=== PATIENT | male | born 1980 | race Caucasian/White ===

== ENCOUNTER 2017-06-14 15:19 | Emergency (ER) | payer BC ==
[2017-06-14] MEDS ORDERED: Albuterol/Ipratropium 3.0-0.5 MG/3 ML Neb Soln NEB ONE (15:32)
--- NOTE | 2017-06-14 15:47 | EDM.PDOC ---
ED HPI GENERAL MEDICAL PROBLEM - General Chief Complaint: Respiratory Problem Stated Complaint: COUGH Time Seen by Provider: 06/14/17 15:20 Source of Information: Reports: Patient History Limitations: Reports: No Limitations - History of Present Illness INITIAL COMMENTS - FREE TEXT/NARRATIVE: History of present illness: [36-year-old month presenting with complaints of flulike symptoms. Patient says he has a cough, feels it's difficult to breathe, headache, and nausea without vomiting. Patient also denies diarrhea this time] Review of systems: As per history of present illness and below otherwise all systems reviewed and negative. Past medical history: As per history of present illness and as reviewed below otherwise noncontributory. Surgical history: As per history of present illness and as reviewed below otherwise noncontributory. Social history: No reported history of drug or alcohol abuse. Family history: As per history of present illness and as reviewed below otherwise noncontributory. Physical exam: HEENT: Atraumatic, normocephalic, pupils reactive, negative for conjunctival pallor or scleral icterus, mucous membranes moist with oral pharyngeal erythema , th neck supple, nontender, trachea midline. Lungs: Diminished throughout with loose nonproductive cough, breath sounds equal bilaterally, chest nontender. Heart: S1S2, regular, negative for clicks, rubs, or JVD. Abdomen: Soft, nondistended, nontender. Negative for masses or hepatosplenomegaly. Negative for costovertebral tenderness. Pelvis: Stable nontender. Genitourinary: Deferred. Rectal: Deferred. Extremities: Atraumatic, negative for cords or calf pain. Neurovascular unremarkable. Neuro: Awake, alert, oriented. Cranial nerves II through XII unremarkable. Cerebellum unremarkable. Motor and sensory unremarkable throughout. Exam nonfocal. Diagnostics: [Influenza A B, chest x-ray] Therapeutics: [DuoNeb] Impression: [#1 pharyngitis #2 to cough] Plan: [Inhaler, steroid] Definitive disposition and diagnosis as appropriate pending reevaluation and review of above. - Related Data Allergies Allergy/AdvReac Type Severity Reaction Status Date / Time No Known Allergies Allergy Verified 06/14/17 15:35 Home Meds: Home Meds Albuterol Sulfate [Proair Hfa] 2 puff IH Q6HR #1 hfa.aer.ad 06/14/17 [Rx] Amoxicillin [IMW: Amoxicillin] 500 mg PO .THREE TIMES DAILY #30 cap 06/14/17 [Rx ] Inhaler, Assist Devices [Space Chamber Plus] 1 each ASDIRECTED #1 spacer [Rx] methylPREDNISolone [Medrol] 4 mg PO DAILY #21 tab.ds.pk 06/14/17 [Rx] Past Medical History - Past Surgical History HEENT Surgical History: Reports: LASIK, Oral Surgery, Tonsillectomy Social & Family History - Family History Family Medical History: Noncontributory - Tobacco Use Smoking Status *Q: Never Smoker - Caffeine Use Caffeine Use: Reports: Energy Drinks - Recreational Drug Use Recreational Drug Use: No ED ROS GENERAL - Review of Systems Review Of Systems: See Below (See history of present illness) ED EXAM, GENERAL - Physical Exam Exam: See Below (See history of present illness) Course - Vital Signs Last Recorded V/S: Last Vital Signs Temp 36.9 C 06/14/17 15:35 Pulse 97 06/14/17 15:35 Resp 14 06/14/17 15:35 BP 126/81 06/14/17 15:35 Pulse Ox 96 06/14/17 15:35 - Orders/Labs/Meds Orders: Active Orders 24 hr Category Date Time Status RT Aerosol Therapy [RC] ASDIRECTED Care 06/14/17 15:32 Active CXR [Chest 2V] [CR] Stat Exams 06/14/17 16:20 Taken Meds: Medications Discontinued Medications Generic Name Dose Route Start Last Admin Trade Name Freq PRN Reason Stop Dose Admin Albuterol/Ipratropium 3 ml 06/14/17 15:32 06/14/17 15:50 Duoneb 3.0-0.5 Mg/3 Ml NEB 06/14/17 15:33 3 ml ONETIME ONE Administration Departure - Departure Time of Disposition: 17:22 Disposition: Home, Self-Care 01 Condition: Good Clinical Impression: Pharyngitis, Cough - Discharge Information Prescriptions: Albuterol Sulfate [Proair Hfa] 2 puff IH Q6HR #1 hfa.aer.ad Amoxicillin [IMW: Amoxicillin] 500 mg PO .THREE TIMES DAILY #30 cap Inhaler, Assist Devices [Space Chamber Plus] 1 each ASDIRECTED #1 spacer methylPREDNISolone [Medrol] 4 mg PO DAILY #21 tab.ds.pk Referrals: PCP,None [Primary Care Provider] - Forms: ED Department Discharge Additional Instructions: The following information is given to patients seen in the emergency department who are being discharged to home. This information is to outline your options for follow-up care. We provide all patients seen in our emergency department with a follow-up referral. The need for follow-up, as well as the timing and circumstances, are variable depending upon the specifics of your emergency department visit. If you don't have a primary care physician on staff, we will provide you with a referral. We always advise you to contact your personal physician following an emergency department visit to inform them of the circumstance of the visit and for follow-up with them and/or the need for any referrals to a consulting specialist. The emergency department will also refer you to a specialist when appropriate. This referral assures that you have the opportunity for follow-up care with a specialist. All of these measure are taken in an effort to provide you with optimal care, which includes your follow-up. Under all circumstances we always encourage you to contact your private physician who remains a resource for coordinating your care. When calling for follow-up care, please make the office aware that this follow-up is from your recent emergency room visit. If for any reason you are refused follow-up, please contact the Emergency Department at and asked to speak to the emergency department charge nurse. Take medication as directed Follow-up with PCP in 3-5 days Return to ED as needed as discussed - My Orders Last 24 Hours: My Active Orders 06/14/17 15:32 RT Aerosol Therapy [RC] ASDIRECTED 06/14/17 16:20 CXR [Chest 2V] [CR] Stat - Assessment/Plan Last 24 Hours: My Active Orders 06/14/17 15:32 RT Aerosol Therapy [RC] ASDIRECTED 06/14/17 16:20 CXR [Chest 2V] [CR] Stat
--- NOTE | 2017-06-17 18:39 | CR ---
EXAM DATE: 06/14/17 PATIENT'S AGE: 36 Patient: AARON REDDY Facility: [place], [place] Site . Site : [id number] Study: XRay Chest [id number] 4:41:46 PM Ordering Physician: Doctor Prater Final Report: INDICATION: Shortness of breath. Technique: PA and lateral chest x-ray. Findings: Heart size normal. Lungs clear without infiltrate. Mild anterior wedging mid thoracic vertebral bodies. Chest otherwise negative. Dictated by Eliazar Ernandez MD @ Jun 14 2017 5:06PM (Electronic Signature) Report Signed by Proxy. TRINA
== END 2017-06-14 17:48 | disposition home or self-care (01) ==
LOC: MW.ED 15:19
DX: J02.9 Acute pharyngitis, unspecified (principal); Z79.899 Other long term (current) drug therapy
CPT/HCPCS: 71020; 71020-26; 87804; 94640; 99283; 99283-25